=== PATIENT | male | born 1975 ===

== ENCOUNTER 2023-04-10 16:27 | Emergency (ER) | payer BC ==
--- OUTSIDE RECORDS SUMMARY | 2023-04-10 16:53 | XMS REPORT | Continuity of Care Document ---
:1975 Author Organization [facility] t Address [address] [facility] [address] [place] [id number] Care Team Providers Name Role Phone Alea Ellis Attending Clinician Unavailable Problems This patient has no known problems. Allergies, Adverse Reactions, Alerts This patient has no known allergies or adverse reactions. Medications This patient has no known medications. Procedures This patient has no known procedures. Encounters Start End Encounter Admission Attending Care Care Encounter Source Date/Time Date/Time Type Type Clinicians Facility Department ID 2023-01-07 Outpatient NENA Ellis [facility] [id number] Common 16:28:03 Alea [id number] [facility] Results This patient has no known results.
[2023-04-10 17:44] LABS: Absolute Lymphocytes (CBC) 1.7 K/uL (0.7-4.9); Hematocrit 41.4 % (39.6-49.0); Lymphocytes % 13.2 % (15.3-44.8); MCV 88.2 fL (80-100); MPV 8.8 fL (7.6-11.3)
[2023-04-10 17:47] LABS: Albumin 3.7 g/dL (3.4-5.0); Bilirubin Total 0.5 mg/dL (0.2-1.0); Potassium 3.6 mEq/L (3.5-5.1); Protein, Total 6.7 g/dL (6.4-8.2)
--- NOTE | 2023-04-10 18:17 | RAD REPORT ---
EXAM DESCRIPTION: CT - CTFBWCON CLINICAL HISTORY: abscess right cheek Pain and swelling COMPARISON: No comparisons TECHNIQUE: Axial 2 mm thick images of the face were obtained with sagittal and coronal reconstructio n images. All CT scans are performed using dose optimization technique as appropriate and may include automated exposure control or mA/KV adjustment according to patient size. FINDINGS: Significant edema is present in the soft tissues extending from the right zygoma/infraorbi maico/periorbital region on the right inferiorly to the right cheek. Inflamed fat and thickened skin is present. No drainable fluid collection evident. Mild mucus in both maxillary antra. IMPRESSION: Right-sided facial inflammation and soft tissue edema and fluid without localized or felix inable fluid collection seen.There is significant fluid/edematous tissue seen anterior to the right z ygoma.
--- NOTE | 2023-04-10 18:31 | EDPHYS ---
Physician Documentation [facility] Name: Shane Jimenez Age: 47 yrs Sex: Male : 1975 Arrival Date: 04/10/2023 Time: 16:27 Bed 9 Private MD: ED Physician Shay Su HPI: 04/10 18:35 This 47 yrs old Male presents to ER via Ambulatory with complaints of Facial Swelling. rt 18:35 Patient presents to the ED with 3 days of swelling to the right side of the face. rt Patient states that today, he had an abscess drained at the [facility] office with a small amount of pus being removed. He states this started as a pimple. Patient was given a prescription for doxycycline for which she has taken 1 dose of it. Patient took a nap when he got home, woke up with worsening swelling to the face, concerned that there may be more fluid there. Denies any difficulty swallowing, double vision. Denies other acute complaints at this time, symptoms are moderate severity, no other aggravating or alleviating factors.. Historical: - Allergies: 16:34 No Known Allergies; hb - Home Meds: 16:34 clomiphene citrate 50 mg oral tablet [Active]; hb - PMHx: 16:34 None; hb - PSHx: 16:34 None; hb - Immunization history:: Adult Immunizations up to date. - Social history:: Smoking status: Patient denies any tobacco usage or history of. - Family history:: not pertinent. ROS: 18:35 Skin: Positive for rt 18:41 Constitutional: Negative for fever, chills, and weight loss, Cardiovascular: Negative rt for chest pain, palpitations, and edema, Respiratory: Negative for shortness of breath, cough, wheezing, and pleuritic chest pain, Abdomen/GI: Negative for abdominal pain, nausea, vomiting, diarrhea, and constipation, MS/Extremity: Negative for injury and deformity, Neuro: Negative for headache, weakness, numbness, tingling, and seizure, Psych: Negative for depression, anxiety, suicide ideation, homicidal ideation, and hallucinations. 18:41 Skin: Positive for abscess, cellulitis. Exam: 18:41 Constitutional: This is a well developed, well nourished patient who is awake, alert, rt and in no acute distress. Chest/axilla: Normal chest wall appearance and motion. Nontender with no deformity. No lesions are appreciated. Cardiovascular: Regular rate and rhythm with a normal S1 and S2. No gallops, murmurs, or rubs. Normal PMI, no JVD. No pulse deficits. Respiratory: Lungs have equal breath sounds bilaterally, clear to auscultation and percussion. No rales, rhonchi or wheezes noted. No increased work of breathing, no retractions or nasal flaring. Abdomen/GI: Soft, non-tender, with normal bowel sounds. No distension or tympany. No guarding or rebound. No evidence of tenderness throughout. MS/ Extremity: Pulses equal, no cyanosis. Neurovascular intact. Full, normal range of motion. Neuro: Awake and alert, GCS 15, oriented to person, place, time, and situation. Cranial nerves II-XII grossly intact. Motor strength 5/5 in all extremities. Sensory grossly intact. Cerebellar exam normal. Normal gait. Psych: Awake, alert, with orientation to person, place and time. Behavior, mood, and affect are within normal limits. 18:41 Head/face: Swelling noted to the right from the right cheek to the infraorbital region, no obvious abscess. 18:41 Eyes: conjunctiva normal, extraocular muscles are intact. 18:41 ENT: No intraoral lesions. Vital Signs: 16:33 BP 143 / 90; Pulse 84; Resp 16; Temp 99.2(O); Pulse Ox 97% on R/A; Weight 104.33 kg; hb Height 5 ft. 11 in. ; Pain 7/10; 18:47 BP 142 / 89; Pulse 83; Resp 15; Pulse Ox 97% ; jl7 16:33 Body Mass Index 32.08 (104.33 kg, 180.34 cm) hb 16:33 Pain Scale: Adult hb MDM: 16:42 Patient medically screened. rt 18:41 Differential Diagnosis Abscess, facial cellulitis, orbital cellulitis. Data reviewed: rt vital signs, nurses notes, lab test result(s), radiologic studies. Consideration of Admission/Observation Escalation of care including admission/observation considered. Counseling: I had a detailed discussion with the patient and/or guardian regarding: the historical points, exam findings, and any diagnostic results supporting the discharge/admit diagnosis, lab results, radiology results, the need for outpatient follow up. ED course: No drainable abscess, no evidence of deeper space infection to include the sinuses, orbits. The patient is currently on his first dose of doxycycline, too soon to know if this represents a treatment failure. We will continue on with this course. He has an adequate supply of antibiotics, he does not require another prescription.. 04/10 16:49 Order name: CBC with Diff; Complete Time: 17:53 rt 04/10 16:49 Order name: CMP; Complete Time: 17:53 rt 04/10 16:49 Order name: CT Facial Bones W/ Con \T\ Mpr; Complete Time: 18:21 rt Administered Medications: No medications were administered Disposition Summary: 04/10/23 18:30 Discharge Ordered Location: Home rt Problem: new rt Symptoms: are unchanged rt Condition: Stable rt Diagnosis - Facial cellulitis rt Followup: rt - With: Private Physician - When: 2 - 3 days - Reason: Discharge Instructions: - Discharge Summary Sheet rt - Cellulitis, Adult rt Forms: - Medication Reconciliation Form rt - Thank You Letter rt - Antibiotic Education rt - Prescription Opioid Use rt Signatures: Dispatcher [employer] Donna Hernandez, RN RN Shay Mcdonald MD MD rt
--- NOTE | 2023-04-10 18:31 | ER ---
Nurse's Notes [facility] Name: Shane Jimenez Age: 47 yrs Sex: Male : 1975 Arrival Date: 04/10/2023 Time: 16:27 Bed 9 Private MD: Diagnosis: Facial cellulitis Presentation: 04/10 16:33 Chief complaint: Right cheek abscess x 3 days. Coronavirus screen: At this time, the hb client does not indicate any symptoms associated with coronavirus-19. Ebola Screen: No symptoms or risks identified at this time. Initial Sepsis Screen: Does the patient meet any 2 criteria? No. Patient's initial sepsis screen is negative. Does the patient have a suspected source of infection? No. Patient's initial sepsis screen is negative. Risk Assessment: Do you want to hurt yourself or someone else? Patient reports no desire to harm self or others. Onset of symptoms was April 07, 2023. 16:33 Method Of Arrival: Ambulatory 16:33 Acuity: VLAD 3 hb Historical: - Allergies: 16:34 No Known Allergies; hb - Home Meds: 16:34 clomiphene citrate 50 mg oral tablet [Active]; hb - PMHx: 16:34 None; hb - PSHx: 16:34 None; hb - Immunization history:: Adult Immunizations up to date. - Social history:: Smoking status: Patient denies any tobacco usage or history of. - Family history:: not pertinent. Screenin:00 [facility] ED Fall Risk Assessment (Adult) History of falling in the last 3 months, jl7 including since admission No falls in past 3 months (0 pts) Confusion or Disorientation No (0 pts) Intoxicated or Sedated No (0 pts) Impaired Gait No (0 pts) Mobility Assist Device Used No (0 pt) Altered Elimination No (0 pt) Score/Fall Risk Level 0 - 2 = Low Risk Oriented to surroundings, Maintained a safe environment. Abuse screen: Denies threats or abuse. Denies injuries from another. Nutritional screening: No deficits noted. Tuberculosis screening: No symptoms or risk factors identified. Assessment: 17:00 General: Appears in no apparent distress. uncomfortable, Behavior is calm, cooperative, jl7 appropriate for age. Pain: Complains of pain in right cheek Pain currently is 7 out of 10 on a pain scale. Neuro: Level of Consciousness is awake, alert, obeys commands, Oriented to person, place, time, situation. Cardiovascular: Patient's skin is warm and dry. Respiratory: Airway is patent Respiratory effort is even, unlabored, Respiratory pattern is regular, symmetrical. Derm: Skin is pink, warm \T\ dry. Swelling noted to right facial cheek with noted abrasion. Vital Signs: 16:33 BP 143 / 90; Pulse 84; Resp 16; Temp 99.2(O); Pulse Ox 97% on R/A; Weight 104.33 kg; hb Height 5 ft. 11 in. ; Pain 7/10; 18:47 BP 142 / 89; Pulse 83; Resp 15; Pulse Ox 97% ; jl7 16:33 Body Mass Index 32.08 (104.33 kg, 180.34 cm) hb 16:33 Pain Scale: Adult hb ED Course: 16:29 Patient arrived in ED. ts1 16:34 Triage completed. hb 16:34 Arm band placed on. hb 16:40 Shay Su MD is Attending Physician. rt 16:52 Radiology exam delayed due to lab results not completed at this time. (BUN/Creatinine) jg10 IV insertion attempt and/or patient not having appropriate IV at this time. 17:00 Patient has correct armband on for positive identification. Bed in low position. Call jl7 light in reach. Side rails up X 1. 17:20 Inserted saline lock: 20 gauge in right antecubital area, using aseptic technique. jl7 17:20 Initial lab(s) drawn, by me, sent to lab. jl7 18:01 CT Facial Bones W/ Con \T\ Mpr In Process Unspecified. EDMS 18:16 Jocelyne Pfeiffer, RN is Primary Nurse. jl7 18:47 No provider procedures requiring assistance completed. IV discontinued, intact, jl7 bleeding controlled, No redness/swelling at site. Pressure dressing applied. Administered Medications: No medications were administered Medication: 18:48 VIS not applicable for this client. jl7 Outcome: 18:30 Discharge ordered by . rt 18:47 Discharged to home ambulatory. jl7 18:47 Condition: stable 18:47 Discharge instructions given to patient, family, Instructed on discharge instructions, follow up and referral plans. Demonstrated understanding of instructions, follow-up care. 18:48 Patient left the ED. jl7 Signatures: Dispatcher [employer] Donna Hernandez RN RN Jocelyne Pfeiffer RN RN jl7 Aruna Driscoll jg10 Shay Su MD MD rt Simpson, Tanya, PAS PAS ts1
[2023-04-10 19:22] VITALS: TEMP 99.2; O2SAT 97
[2023-04-10 19:24] VITALS: BP 142/89
== END 2023-04-10 18:48 | disposition home or self-care (01) ==
LOC: ER 16:27
DX: L03.211 Cellulitis of face (principal)
CPT/HCPCS: 85025; 36415; 80053; 70487; 76377; 99284; Q9967